=== PATIENT | male | born 1940 | race Caucasian/White ===

== ENCOUNTER 2018-09-25 21:06 | Inpatient (IN) | payer MEDICARE, SELFPAY ==
[~2018-09-25] VITALS: Ht 177.8 cm; Wt 77.8 kg
--- NOTE | 2018-09-25 21:15 | NUR ---
PT RESPONSIVE TO PAINFUL STIMULI, WAKES UP VIOLENTLY, SWINGING, PT YELLING "NO DON'T HIT ME!!"
[2018-09-25] MEDS ORDERED: SODIUM CHLORIDE FLUSH 10ML SYR IVF ONE (21:30)
[2018-09-25 21:53] LABS: BASOPHILS # (AUTO) 0.01 x10^3/uL (0-0.1); BASOPHILS % (AUTO) 0 % (0-1); EOSINOPHILS # (AUTO) 0.23 x10^3/uL (0-0.4); EOSINOPHILS % (AUTO) 3 % (1-7); LYMPHOCYTES # (AUTO) 1.53 x10^3/uL (1-3.4); LYMPHOCYTES % (AUTO) 22 % (22-44); MD NO; MEAN CORPUSCULAR HEMOGLOBIN 33.3 pg (27.5-34.5); MEAN CORPUSCULAR HGB CONC 34.1 g/dL (33.2-36.2); MEAN CORPUSCULAR VOLUME 97.7 fL (81-97); MEAN PLATELET VOLUME 7.8 fL (7.4-10.4); MONOCYTES # (AUTO) 0.39 x10^3/uL (0.2-0.8); MONOCYTES % (AUTO) 6 % (2-9); NEUTROPHILS # (AUTO) 4.85 x10^3/uL (1.8-6.8); NEUTROPHILS % (AUTO) 69 % (42-75); PLATELET COUNT 225 x10^3/uL (130-400); RED BLOOD COUNT 4.89 x10^6/uL (4.38-5.82); RED CELL DISTRIBUTION WIDTH 14.3 % (9.4-14.8)
[2018-09-25 21:58] LABS: INTERNATIONAL NORMALIZED RATIO 0.99 (0.93-1.1); PROTHROMBIN TIME 10.4 Seconds (9.6-11.5)
[2018-09-25 22:01] LABS: ALANINE AMINOTRANSFERASE 25 U/L (12-78); ALBUMIN 3.7 g/dL (3.4-5.0); ANION GAP 8 mmol/L (5-15); CALCIUM 8.7 mg/dL (8.5-10.1); CHLORIDE 108 mmol/L (98-107)
[2018-09-25 22:03] LABS: ALKALINE PHOSPHATASE 92 U/L (45-117); BILIRUBIN,TOTAL 0.2 mg/dL (0.2-1.0); CREATININE 1.15 mg/dL (0.7-1.3); TOTAL PROTEIN 7.8 g/dL (6.4-8.2)
[2018-09-25 22:04] LABS: ACETAMINOPHEN < 2 mcg/mL (10-30)
--- NOTE | 2018-09-25 22:14 | NUR ---
report of pt from SUPRIYA Arenas. All questions answered.
--- NOTE | 2018-09-25 22:35 | NUR ---
Pt does not respond to verbal stimuli, but arouses to painful stimuli. Unable to assess pt mentation at this time. equal bilateral rise and fall of chest observed; nadn. pt on vs machines and reed polisher. vss. call light is within reach.
[2018-09-25 23:08] LABS: AMPHETAMINE SCREEN, URINE Negative (Negative); BARBITURATE SCREEN, URINE Negative (Negative); BENZODIAZEPINE SCREEN, URINE Negative (Negative); CANNABINOID SCREEN, URINE Negative (Negative); COCAINE SCREEN, URINE Negative (Negative); METHADONE SCREEN, URINE Negative (Negative); OPIATE SCREEN, URINE Negative (Negative)
--- NOTE | 2018-09-26 02:13 | NUR ---
Pt awake and talking at this time. pt is alert and oriented, and was able to provide pmh. Pt recalls events of tonight and states "sometimes my legs go out on me". Pt vs updated in emr. Pt states he lives in town, and if he can walk, would like a taxi voucher home. Pt placed back on oxygen to bring o2 saturation back up to low 90's. pt has call light within reach at this time.
--- NOTE | 2018-09-26 02:42 | NUR ---
Called lab. urine sample for UDS will be used for UA.
[2018-09-26 02:53] LABS: MICROSCOPIC NOT IND
[2018-09-26 02:55] LABS: CULTURE INDICATED? NO
--- NOTE | 2018-09-26 04:35 | NUR ---
pt sleeping in [facility] at this time; azul. pt vss and updated in emr. call light is within reach at this time.
[2018-09-26] MEDS ORDERED: OMNIPAQUE 350 MG/ML, 100ML BOTTLE ONE (05:04)
--- NOTE | 2018-09-26 05:15 | NUR ---
report of pt to crow muñoz. all questions answered.
[2018-09-26] MEDS ORDERED: NITROGLYCERIN 0.4 MG BOTTLE (25 TABS) SL PRN (05:30)
[2018-09-26] MEDS ORDERED: FOLIC ACID 5 MG/ML IM ONE (05:30)
[2018-09-26] MEDS ORDERED: NITROGLYCERIN 0.4 MG/SPRAY SL PRN (05:30)
[2018-09-26] MEDS ORDERED: ENALAPRILAT 1.25 MG/ML, 2ML IVPush PRN (05:30)
[2018-09-26] MEDS ORDERED: THIAMINE 200 MG in DEXTROSE 5% 50 ML IVPB ONE (05:30)
[2018-09-26 05:51] LABS: TROPONIN I < 0.015 ng/mL (0.000-0.045)
[2018-09-26] MEDS ORDERED: THIAMINE 100MG TABLET PO ONE (08:00)
[2018-09-26] MEDS ORDERED: FOLIC ACID 1 MG TABLET PO ONE (08:00)
[2018-09-26 08:14] VITALS: BP 147/77
[2018-09-26] MEDS: HEPARIN 5,000 UNITS/ML, 1ML SQ SCH ×2 (08:21→16:15)
[2018-09-26] MEDS: MULTIVITAMINS/MINERALS TABLET PO SCH (08:21)
[2018-09-26] MEDS: ASPIRIN 325 MG TABLET EC PO SCH (08:22)
[2018-09-26 11:43] LABS: TROPONIN I < 0.015 ng/mL (0.000-0.045)
[2018-09-26 12:38] VITALS: BP 153/89
[2018-09-26] MEDS: ACETAMINOPHEN 325 MG TABLET PO PRN (17:23)
[2018-09-26 20:11] VITALS: BP 149/71
[2018-09-27] MEDS: HEPARIN 5,000 UNITS/ML, 1ML SQ SCH ×3 (00:33→17:14)
[2018-09-27] MEDS: ACETAMINOPHEN 325 MG TABLET PO PRN ×3 (00:33→13:47)
[2018-09-27 02:09] VITALS: BP 148/72
[2018-09-27 05:15] LABS: ANION GAP 6 mmol/L (5-15); CALCIUM 8.7 mg/dL (8.5-10.1); CHLORIDE 107 mmol/L (98-107)
[2018-09-27 05:16] LABS: BASOPHILS # (AUTO) 0.04 x10^3/uL (0-0.1); BASOPHILS % (AUTO) 0 % (0-1); EOSINOPHILS # (AUTO) 0.01 x10^3/uL (0-0.4); EOSINOPHILS % (AUTO) 0 % (1-7); LYMPHOCYTES # (AUTO) 1.64 x10^3/uL (1-3.4); LYMPHOCYTES % (AUTO) 15 % (22-44); MD NO; MEAN CORPUSCULAR HEMOGLOBIN 33.4 pg (27.5-34.5); MEAN CORPUSCULAR HGB CONC 34.1 g/dL (33.2-36.2); MEAN PLATELET VOLUME 8.1 fL (7.4-10.4); MONOCYTES # (AUTO) 0.73 x10^3/uL (0.2-0.8); MONOCYTES % (AUTO) 7 % (2-9); NEUTROPHILS # (AUTO) 8.79 x10^3/uL (1.8-6.8); NEUTROPHILS % (AUTO) 79 % (42-75); PLATELET COUNT 231 x10^3/uL (130-400); RED BLOOD COUNT 4.62 x10^6/uL (4.38-5.82); RED CELL DISTRIBUTION WIDTH 14.2 % (9.4-14.8)
[2018-09-27 05:18] LABS: CHOL/HDL RATIO 4.3; CHOLESTEROL, TOTAL 205 mg/dL (140-239); CREATININE 1.06 mg/dL (0.7-1.3); HDL CHOL % 23 % (26-37); HDL CHOLESTEROL (DIRECT) 48 mg/dL (40-60); LDL CHOLESTEROL,CALCULATED 122 mg/dL (54-169); LDL/HDL RATIO 2.5 (0.5-3.0); TRIGLYCERIDES 173 mg/dL (50-200); VLDL CHOLESTEROL 35 mg/dL (0-25)
[2018-09-27] MEDS: ASPIRIN 325 MG TABLET EC PO SCH (05:59)
[2018-09-27 07:30] VITALS: BP 152/84
[2018-09-27] MEDS: MULTIVITAMINS/MINERALS TABLET PO SCH (08:52)
[2018-09-27 13:15] VITALS: BP 166/91
[2018-09-27] MEDS ORDERED: KETOROLAC 30 MG/1 ML IVPush SCH (20:00)
[2018-09-27 20:48] VITALS: BP 135/68
[2018-09-28] MEDS: HEPARIN 5,000 UNITS/ML, 1ML SQ SCH (01:25)
[2018-09-28 03:54] VITALS: BP 147/73
[2018-09-28] MEDS: ASPIRIN 325 MG TABLET EC PO SCH (06:17)
[2018-09-28] MEDS: ACETAMINOPHEN 325 MG TABLET PO PRN (06:36)
[2018-09-28 07:49] VITALS: BP 145/72
[2018-09-28] MEDS: MULTIVITAMINS/MINERALS TABLET PO SCH (09:30)
[2018-09-28] MEDS: ENOXAPARIN 40 MG/0.4 ML SQ SCH (09:32)
[2018-09-28] MEDS: KETOROLAC 30 MG/1 ML IVPush PRN ×2 (13:16→20:45)
[2018-09-28 14:36] VITALS: BP 140/69
[2018-09-28 19:38] VITALS: BP 144/66
[2018-09-29 01:42] VITALS: BP 139/62
[2018-09-29] MEDS: KETOROLAC 30 MG/1 ML IVPush PRN ×2 (04:39→13:59)
[2018-09-29] MEDS: ASPIRIN 325 MG TABLET EC PO SCH (04:40)
[2018-09-29] MEDS ORDERED: PRED20TA PO (07:10)
[2018-09-29] MEDS ORDERED: ACET325T14 PO (07:10)
[2018-09-29] MEDS ORDERED: ASPI-650 PO (07:11)
[2018-09-29] MEDS ORDERED: ATOR40TA78 PO (07:11)
[2018-09-29] MEDS: MULTIVITAMINS/MINERALS TABLET PO SCH (07:36)
[2018-09-29] MEDS: ENOXAPARIN 40 MG/0.4 ML SQ SCH (07:36)
[2018-09-29 08:34] VITALS: BP 162/82
[2018-09-29 14:15] VITALS: BP 158/79
== END 2018-09-29 15:04 | DRG 91 ==
LOC: ED 09-26 00:45 → 5SO 09-26 04:51 → UNDOADMIN 09-26 04:51 → EDIP 09-26 04:51 → 4EST 09-26 05:49
PROVIDERS: ADMIT Emergency Medicine; ATTEND Emergency Medicine
DX: G92 Toxic encephalopathy (principal); J96.01 Acute respiratory failure with hypoxia; F10.221 Alcohol dependence with intoxication delirium; J84.9 Interstitial pulmonary disease, unspecified; Y90.9 Presence of alcohol in blood, level not specified; R68.3 Clubbing of fingers; F17.200 Nicotine dependence, unspecified, uncomplicated; G89.29 Other chronic pain; M25.551 Pain in right hip; M25.561 Pain in right knee; I10 Essential (primary) hypertension; I25.10 Atherosclerotic heart disease of native coronary artery without angina pectoris; J44.9 Chronic obstructive pulmonary disease, unspecified; M19.90 Unspecified osteoarthritis, unspecified site; Z59.0 Homelessness; Z91.14 Patient's other noncompliance with medication regimen; Z95.5 Presence of coronary angioplasty implant and graft
CPT/HCPCS: 36415; 70450; 71045; 71275; 72131; 72192; 80048; 80053; 80061; 80307; 80329; 81003; 82140; 83735; 84100; 84443; 84484; 85025; 85379; 85610; 85730; 93005; 93306; G0378; J1644; J1650; J1885; Q9967; G0480; J7512

== ENCOUNTER 2020-11-15 06:14 | Emergency (ER) | payer MEDICARE, MEDICAID ==
[~2020-11-15] VITALS: Ht 175.3 cm; Wt 62.5 kg
[~2020-11-15 06:14] MED LIST: ACET325T14 PO; ASPI325T20 PO; ATOR40TA78 PO; PRED20TA PO
--- NOTE | 2020-11-15 06:22 | NUR ---
TASK RN: pt bib ems from home for a GLF last night. EMS reports pt was earlier taken to [facility] where he was placed in the lobby to wait and pt AMA'd home then recalled EMS to come here, refused interventions enroute. pt drank 1 fifth vodka this morning. Pt had one fall one week prior with a fractured vertebrae, pain increased after this evenings fall. pt denies head impact, c-spine tenderness or loc with this fall. pt resting on gurney, nad, bed in [facility], rails engaged, call light on lap. WCTM.
--- NOTE | 2020-11-15 06:26 | NUR ---
PT BROUGHT IN BY EMS, PT STATES HE FELL LAST NIGHT AND HE FELL 2 WEEKS AGO WELL, PT STATES HE BROKE HIS BACK. PT IS VERY ANIMATED, PT WEARS OXYGEN AT HOME FOR UNKOWN REASONS AT 2LPM. EMS STATED PT IS AN ALCOHOLIC
--- NOTE | 2020-11-15 06:34 | NUR ---
THIS RN ENTERED ROOM AND PT WAS GETTING OUT OF BED SAYING HE WAS GOING HOME, PT STAED, "I COULD BE AT HOME IN PAIN, WHY AM I HERE IN PAIN? I THOUGHT THIS WAS A HOSPITAL! WHERES THE DOC! I TOLD HIM I BROKE MY BACK! I COULD BE AT HOME IN PAIN! JANUARY". THIS RN STATED THAT THE DOCTOR WAS IN A PROCEDURE AND THAT [facility] HAVE BEEN ORDERED TO CONFIRM PT HAS A BROKEN BACK AND THAT THIS RN CANT JUST TAKE HIS WORD FOR IT HAVING A BROKEN BACK, PT UNDERSTOOD, AND APOLOGIZED FOR BEING RUDE AND GOT BACK INTO BED BUT NOT BEFORE SAYING, "HEY! WHERES THAT DOC! I WANT TO TALK TO HIM! I HAVE A BROKEN BACK!"
--- NOTE | 2020-11-15 06:51 | NUR ---
PT YELLED, "HEY! WHERE THE HELL IS THE DOCTOR?! WHERE IS THE XRAY?!! IM GONNA GO HOME IF I GOTTA STAY HERE IN PAIN", THIS RN STATED IF HIS BACK IS BROKEN WE CAN HELP HIM BUT WE NEED RADIOLOGY FIRST. PT LAYED BACK DOWN AND WENT BACK TO SLEEP FOR THE MOMENT
--- NOTE | 2020-11-15 07:17 | NUR ---
PT OFF THE FLOOR TO RADIOLOGY
--- NOTE | 2020-11-15 07:32 | NUR ---
PT REQUESTING PAIN MEDS. MESSAGE LEFT FOR
[2020-11-15] MEDS ORDERED: KETOROLAC 30 MG/1 ML ONE (07:38)
--- NOTE | 2020-11-15 07:42 | NUR ---
PT MEDICATED PER MAR FOR PAIN
--- NOTE | 2020-11-15 07:54 | NUR ---
PT NOW COMPLAINING OF CHEST PAIN. ALSO STATING HE HAS NO RELIEF FROM PAIN MED. MESSAGE LEFT FOR .
--- NOTE | 2020-11-15 07:55 | NUR ---
PT OFF THE FLOOR TO CT
[2020-11-15] MEDS ORDERED: KETOROLAC 30 MG/1 ML IM ONE (08:00)
--- NOTE | 2020-11-15 08:15 | NUR ---
EKG COMPLETE AND SENT TO
--- NOTE | 2020-11-15 08:22 | NUR ---
DR MARTINEZ ADVISED OF PT REQUEST TO SEE
--- NOTE | 2020-11-15 08:24 | NUR ---
PT TOLD GREEN[facility]ELT THAT HE NEEDED A KNIFE TO "END IT ALL". HE WANTS TO CUT HIS THROAT FROM PAIN.
[2020-11-15] MEDS ORDERED: MORPHINE SULFATE 4 MG/ML, 1ML ONE (08:49)
[2020-11-15] MEDS ORDERED: MORPHINE SULFATE 4 MG/ML, 1ML IVPush ONE (09:00)
--- NOTE | 2020-11-15 10:24 | NUR ---
PT OFF FLOOR TO MRI
--- NOTE | 2020-11-15 12:20 | NUR ---
PT SLEEPING ON SIDE ON ED GURNEY WITH BOTH RAILS UP. EVEN RISE AND FALL OF CHEST NOTED. NAD. VSS. CALL LIGHT WITHIN REACH.
[2020-11-15] MEDS ORDERED: HYDROcodone/APAP 5/325 TABLET ONE (14:12)
[2020-11-15] MEDS ORDERED: HYDROcodone/APAP 5/325 TABLET PO ONE (14:30)
[2020-11-15 16:31] VITALS: BP 144/57
--- NOTE | 2020-11-15 16:55 | NUR ---
PT EDUCATED ON THE IMPORTANCE OF WEARING HIS BRACE AND TO FOLLOW UP. PT STATED HE HAS NO QUESTIONS ABOUT EDUCATION. CARD WITH FOLLOW UP INFO ON PT'S PERSON.
--- NOTE | 2020-11-15 16:59 | NUR ---
TLSO BRACE PLACED ON PT. PT REC'VD DISCHARGE INSTRUCTIONS AND EDUCATION. PT PLACED IN WHEELCHAIR AND TAKE TO DC AREA.
== END 2020-11-15 17:05 | disposition home or self-care (01) ==
LOC: ED 07:32
DX: S32.010A Wedge compression fracture of first lumbar vertebra, initial encounter for closed fracture (principal); F10.10 Alcohol abuse, uncomplicated; I45.10 Unspecified right bundle-branch block; E78.5 Hyperlipidemia, unspecified; I25.2 Old myocardial infarction; Y90.0 Blood alcohol level of less than 20 mg/100 ml; W18.30XA Fall on same level, unspecified, initial encounter; Y93.89 Activity, other specified; Y92.009 Unspecified place in unspecified non-institutional (private) residence as the place of occurrence of the external cause; Y99.8 Other external cause status
CPT/HCPCS: 72110; 72131; 72148; 93005; 96372; 96374; 99285; J1885; J2270